=== PATIENT | female | born 1985 | race African-American/Black ===

== ENCOUNTER 2025-02-23 13:55 | Emergency (ER) | payer OTHER, SELFPAY ==
--- NOTE | ~2025-02-23 | US_ITS ---
EXAMINATION: US OBSTETRICAL ULTRASOUND CLINICAL INFORMATION: Vaginal bleeding, abdominal pain COMPARISON: None available. LMP: 12/29/24. Gestational age by maternal dates is 8 weeks and 0 days. Estimated date of delivery by maternal dates is 09/07/2025. TECHNIQUE: Routine grayscale transabdominal and transvaginal imaging of pelvis is performed. FINDINGS: The uterus is anteverted measuring 9.1 x 5.3 x 5.5 cm and volume 1 38 mL. No intrauterine gestational sac, pole or heart beat seen. The endometrium is slightly heterogenous and measures 1.1 cm. The cervix is closed with small nabothian cysts. MATERNAL ADNEXA: The right maternal ovary measures 3.2 x 2.5 x 1.8 cm. Small corpus luteal cyst is seen measuring 1.0 x 1.1 x 1.2 cm. The left maternal ovary measures 2.6 x 1.8 x 1.3 cm. There is no significant maternal adnexal mass. No maternal pelvic ascites. US/US OB pelvic and transvaginal IMPRESSION: No intrauterine gestational sac, pole or heart rate seen. Slightly heterogenous endometrium. Small corpus luteal cyst right ovary. Electronically signed by: Slade Cheng MD 02/23/2025 04:18 PM EST
--- NOTE | 2025-02-23 14:18 | ED.ABDPAIN ---
HPI - Abdominal Pain General Chief Complaint: General Medical Stated Complaint: abd pain Time Seen by Provider: 02/23/25 18:27 History of Present Illness HPI narrative: Patient is a 40-year-old female last menstrual period December 27. Presented today with having a positive test in January also noted a positive test today. Patient has been having vaginal bleeding yesterday soaked 1 pad yesterday soaked 1 pad today. Minimal abdominal pain. Patient from home. No history of ectopic in the past. Came in for further evaluation. Patient denies any fever chills. No coughing or congestion. No change in bowel movement. Related Data Allergies Allergy/AdvReac Type Severity Reaction Status Date / Time No Known Allergies Allergy Verified 02/23/25 14:24 Review of Systems Review of Systems Positive vaginal bleeding Yes all other systems are reviewed and are negative PMFSH Past Medical History Attestation statement: The following information was validated with the patient. Social History Social History Smoked in Last 30 Days: No Use of substances other than those prescribed or required for medical reasons: No Advance Directives: No Advance Directives Information Provided: No Do you have a plan to hurt others: No Plan Patient : Yes Physical Exam ED Exam Exam: Appearance: Alert. Oriented X3. No acute distress. Eyes: Pupils equal, round and reactive to light. ENT: Pharynx normal. Neck: Normal inspection. Neck supple. No lymph nodes noted. No crepitus CVS: Normal heart rate and rhythm. Pulses normal. Normal S1 and S2 Respiratory: No respiratory distress. Breath sounds normal. No Wheezing. No rales Abdomen: Soft and nontender. No rigidity. No distention. good BS x4 Skin: Skin warm and dry. Normal skin color. Normal skin turgor. Extremities: No lower extremity edema. Neurovascular intact to all extremities. No Lacerations. No Rash Neuro: Oriented X 3. No motor deficit. No sensory deficit. Moving all extermities. No slurred speech Vital Signs: Vital Signs - 24 hr 02/23/25 14:19 02/23/25 18:37 Temperature 98.7 F 98.5 F Pulse Rate 84 80 Respiratory Rate 18 16 Blood Pressure 120/65 124/64 Pulse Oximetry 100 100 Oxygen Delivery Method Room Air Room Air BMI result Body Mass Index 128.1 Course Course Course Narrative: This is a Rapid Medical Exam performed in triage by Randa Pouliot PA-C. Full HPI, ROS and PE to be performed by primary ED provider. 40-year-old Brazilian Creole speaking female presenting to the ED c/o +home test yesterday - now with vaginal bleeding since yesterday. LMP 12/29. Admits to lower abdominal pain. PE: NAD, nontoxic appearing, ambulating with steady gait Plan: labs, UA Medical Decision Making Medical Decision Making [facility] Narrative: Patient is 40-year-old female presented today with having a home test that was positive soak 1 pad today. Patient's blood type came back at a positive. There is no ABO incompatibility. Patient's quantitative HCG showed 586. At this level naturally not detectable. Patient's ultrasound also showed the same there was no IUP noted. Explained through the patient foreign language interpreter there is a risk of ectopic here. Patient require follow-up in 2 days in the emergency department for repeat hormone level. Patient given a name of the OBGYN Dr. Lemuel albarran. Unfortunately there was no OBGYN on-call on Wednesday evening. Patient's pain is minimal. Bleeding is 1 pad over 24 hours. [place] patient is safe to be discharged. Will ask for the repeat hormone to be drawn at [facility]. Relayed this message through the Creole ship's carpenter. Patient states understanding. Patient understood there is a risk of ectopic. Worsened pain to return immediately. Currently in stable condition will discharge home Differential Diagnosis Differential Diagnoses: The differential diagnosis associated with the presentation includes Normal threatened miscarriage ectopic Admission/Observation Consideration of admission/observation: Escalation of care including admission/observation considered Consult Healthcare Provider No OBGYN was on-call Lab Data [facility] Lab Attestation statement: I reviewed the patient's lab results. 02/23/25 14:39 02/23/25 14:39 Labs: Lab Results 02/23/25 Range/Units 14:39 WBC 5.4 (4.8-10.8) X10*3/uL RBC 4.77 (4.20-5.50) X10*6/uL Hgb 13.2 (12.0-16.0) g/dl Hct 39.9 (37.0-47.0) % MCV 83.6 (80.0-98.0) fL MCH 27.7 (27.0-33.0) pg MCHC 33.1 (31.0-35.0) g/dl RDW 13.0 (11.0-16.0) % Plt Count 224 (160-400) X10*3/uL MPV 10.4 (9.4-12.3) fL Immature Gran % (Auto) 0.2 (0.0-0.4) % Neut % (Auto) 48.1 (45-73) % Lymph % (Auto) 39.1 (20-40) % [place] % (Auto) 9.1 (2-11) % Eos % (Auto) 2.6 (0-4) % Baso % (Auto) 0.9 (0-2) % Lymph # (Auto) 2.1 (1.2-4.9) X10*3/uL [place] # (Auto) 0.5 (0.1-1.2) X10*3/uL Eos # (Auto) 0.1 (0.0-0.4) X10*3/uL Baso # (Auto) 0.1 (0.0-0.2) X10*3/uL Abs Immat Gran (auto) 0.01 (0.00-0.03) X10*3/uL Absolute Neuts (auto) 2.6 (2.0-8.3) x10*3/uL Absolute Nucleated RBC 0.000 (0.0-0.012) X10*3/uL Nucleated RBC % (auto) 0.0 (0.0-0.2) /100WBC Sodium 140 (135-145) mmol/L Potassium 3.6 (3.3-5.1) mmol/L Chloride 110 H (96-108) mmol/L Carbon Dioxide 24 (22-29) mmol/L Anion Gap 10 L (12-20) BUN 16 (9-16) mg/dL Creatinine 0.85 (0.5-1.4) mg/dL Estim Creat Clear Calc 19.8 Estimated GFR > 60 Random Glucose 100 (60-115) mg/dL Calcium 9.3 (8.4-10.2) mg/dL Magnesium 2.0 (1.6-2.6) mg/dL Total Bilirubin 0.5 (0.0-1.0) mg/dL Direct Bilirubin 0.2 (0.0-0.5) mg/dL AST 13 (5-31) U/L ALT 16 (0-31) U/L Alkaline Phosphatase 78 (39-117) U/L Total Protein 8.3 H (6.5-8.0) g/dL Albumin 4.5 (3.5-5.0) g/dL Beta HCG, Quant 586 mIU/mL Blood Type A Positive Radiology Impression Discussion of test interpretation with radiology: I have reviewed the radiologist's reading. Chronic Conditions Social Determinants Patient?s care significantly limited by Social Determinants of Health including: Problems related to primary support group Discharge Plan Discharge Clinical Impression: Threatened , Ectopic Patient Disposition: Home, Self-Care Instructions: Ectopic (DC), Threatened Miscarriage (ED) Additional Instructions: Gen risk austin gwos?s ektopik. Doul? a ??lorna moore retounen nan s?vis ijans radha. Retounen nan 2 jeanna austin yo f? yon l?t t?s ?m?n. Referrals: Va Capone MD [Emergency Provider, Emergency Medicine] - 02/25/25 Referral Note: Gen risk austin gwoses ektopik. Doule a ??lorna moore retounen nan sevis ijans radha. Retounen nan 2 jeanna austin yo fe yon lot estrada omon. Jesus Hdez MD [Physician, LICENSING MANAGER] - 02/27/25 Print Language: Brazilianmichelle Steven
[2025-02-23 14:19] VITALS: BP 120/65; PULSE 84; RESP 18; TEMP 37.1; O2SAT 100; BMI 128.1
--- NOTE | 2025-02-23 14:25 | PC.NURSE ---
treatment supervisor treatment supervisor number [phone]
[2025-02-23 14:43] LABS: MANUAL DIFF FLAG NO
[2025-02-23 14:48] LABS: Hematocrit 39.9 % (37.0-47.0); Hemoglobin 13.2 g/dl (12.0-16.0); Imm Gran Abs Auto 0.01 X10*3/uL (0.00-0.03); Imm Gran Pct Auto 0.2 % (0.0-0.4); Lymphocytes Absolute Auto 2.1 X10*3/uL (1.2-4.9); Mean Corpuscular HGB Conc 33.1 g/dl (31.0-35.0); Mean Corpuscular Hemoglobin 27.7 pg (27.0-33.0); Mean Corpuscular Volume 83.6 fL (80.0-98.0); NRBC Abs Auto 0.000 X10*3/uL (0.0-0.012); NRBC Pct Auto 0.0 /100WBC (0.0-0.2); Platelet Count 224 X10*3/uL (160-400); Red Blood Count 4.77 X10*6/uL (4.20-5.50); White Blood Count 5.4 X10*3/uL (4.8-10.8)
[2025-02-23 15:10] LABS: Alanine Aminotransferase 16 U/L (0-31); Albumin Level 4.5 g/dL (3.5-5.0); Alkaline Phosphatase 78 U/L (39-117); Anion Gap 10 (12-20); Aspartate Amino Transferase 13 U/L (5-31); Blood Urea Nitrogen 16 mg/dL (9-16); Calcium 9.3 mg/dL (8.4-10.2); Carbon Dioxide 24 mmol/L (22-29); Chloride 110 mmol/L (96-108); Creatinine Clr Calc Pharmacy 19.8; Estimated Glomerular Filt Rate > 60; Magnesium 2.0 mg/dL (1.6-2.6); Potassium 3.6 mmol/L (3.3-5.1); Sodium 140 mmol/L (135-145); Total Protein 8.3 g/dL (6.5-8.0)
[2025-02-23 18:37] VITALS: BP 124/64; PULSE 80; RESP 16; TEMP 36.9; O2SAT 100
[2025-02-23 19:30] VITALS: BP 124/64; PULSE 80; RESP 16; TEMP 36.9; O2SAT 100
== END 2025-02-23 19:35 | disposition home or self-care (01) ==
PROVIDERS: Physician Assistant; Emergency Provider Emergency Medicine Emergency Medical Services
DX: O20.0 Threatened abortion (principal); R10.9 Unspecified abdominal pain
CPT/HCPCS: 36415; 76801; 76817; 80048; 80076; 83735; 84702; 85025; 86900; 86901; 99284

== ENCOUNTER → 2025-02-23 14:19 | Outpatient (BNV) | payer OTHER, SELFPAY | PROVIDERS: Visit Provider Radiology Diagnostic Radiology | DX: O26.891 Other specified pregnancy related conditions, first trimester (principal); N83.11 Corpus luteum cyst of right ovary | CPT/HCPCS: 76801; 76817 ==